=== PATIENT | female | born 1965 | race African-American/Black ===

== ENCOUNTER → 2017-06-06 | Outpatient (CLI) | payer OTHER | END | disposition home or self-care (01) | LOC: PPH VACUNA 12:45 | DX: Z23 Encounter for immunization (principal) ==

== ENCOUNTER 2017-10-03 11:45 | Outpatient (CLI) | payer OTHER | END 2017-10-03 12:05 | disposition home or self-care (01) | LOC: RAD 11:45 | DX: M54.5 Low back pain (principal); L65.9 Nonscarring hair loss, unspecified; E78.2 Mixed hyperlipidemia; E03.9 Hypothyroidism, unspecified; Z12.31 Encounter for screening mammogram for malignant neoplasm of breast ==

== ENCOUNTER → 2017-10-07 | Outpatient (CLI) | payer OTHER | END | disposition home or self-care (01) | LOC: LAB 07:53 | DX: M54.5 Low back pain (principal); L65.9 Nonscarring hair loss, unspecified; E78.2 Mixed hyperlipidemia; E03.8 Other specified hypothyroidism; Z12.31 Encounter for screening mammogram for malignant neoplasm of breast ==

== ENCOUNTER → 2018-11-06 10:52 | Outpatient (CLI) | payer OTHER | END | disposition home or self-care (01) | LOC: LAB 10:52 | DX: J11.1 Influenza due to unidentified influenza virus with other respiratory manifestations (principal); A49.3 Mycoplasma infection, unspecified site ==

== ENCOUNTER 2018-11-08 12:58 | Outpatient (CLI) | payer OTHER | END 2018-11-08 13:06 | disposition home or self-care (01) | LOC: LAB 12:58 | DX: J11.1 Influenza due to unidentified influenza virus with other respiratory manifestations (principal); M25.50 Pain in unspecified joint ==

== ENCOUNTER → 2018-12-14 | Outpatient (CLI) | payer OTHER | END | disposition home or self-care (01) | LOC: LAB 13:49 | DX: N39.0 Urinary tract infection, site not specified (principal) ==

== ENCOUNTER 2019-01-05 07:38 | Outpatient (CLI) | payer OTHER | END 2019-01-05 07:51 | disposition home or self-care (01) | LOC: LAB 07:38 | DX: E78.49 Other hyperlipidemia (principal); Z00.00 Encounter for general adult medical examination without abnormal findings; E55.9 Vitamin D deficiency, unspecified; R42 Dizziness and giddiness ==

== ENCOUNTER → 2019-04-24 | Outpatient (CLI) | payer OTHER | END | disposition home or self-care (01) | LOC: RAD 13:59 | DX: M54.5 Low back pain (principal) ==

== ENCOUNTER → 2020-01-29 14:59 | Outpatient (CLI) | payer OTHER | END | disposition home or self-care (01) | LOC: LAB 14:59 | PROVIDERS: ATTEND Physical Medicine & Rehabilitation | DX: U07.1 COVID-19 (principal) ==

== ENCOUNTER 2020-02-04 14:09 | Outpatient (CLI) | payer OTHER | END 2020-02-04 14:16 | disposition home or self-care (01) | LOC: MRI 14:09 | PROVIDERS: ATTEND Physical Medicine & Rehabilitation | DX: M54.17 Radiculopathy, lumbosacral region (principal); M54.5 Low back pain | CPT/HCPCS: 72148 ==

== ENCOUNTER → 2020-02-13 | Outpatient (CLI) | payer OTHER | END | disposition home or self-care (01) | LOC: PPH VACUNA 08:00 | DX: Z23 Encounter for immunization (principal) ==

== ENCOUNTER 2020-07-23 10:43 | Outpatient (CLI) | payer OTHER | END 2020-07-23 11:08 | disposition home or self-care (01) | LOC: MAMO-SONO 10:43 | PROVIDERS: ATTEND Internal Medicine | DX: Z12.39 Encounter for other screening for malignant neoplasm of breast (principal) ==